=== PATIENT | female | born 1945 | race Caucasian/White ===

== ENCOUNTER → 2017-08-26 | Outpatient (CLI) | payer MEDICARE, BC ==
[~2017-08-26] MED LIST: CELEXA20 MG PO; COLACE100 MG PO; ETODOLAC 200 MG PO; ETODOLAC 400 M400 MG PO; FISH OIL 1,0001 EAC6 PO; HYDROXYCHLOROQ200 M1 PO; LEVOTHYROXINE50 MCG PO; MELADOX3 MG PO; NORCO 5-325 TA1 EACH PO; NORVASC 5 MG TAB5 MG PO; OMEPRAZOLE20 M2 PO; PRILOSEC40 MG PO; ULTRAM 50MG TAB50 MG PO; UNICOMPLEX M TA1 TA1 PO; occuvite
== END ==
LOC: M.RAD 13:20
DX: M81.0 Age-related osteoporosis without current pathological fracture (principal); Z78.0 Asymptomatic menopausal state

== ENCOUNTER → 2018-09-23 | Outpatient (CLI) | payer MEDICARE, BC | LOC: M.RAD 11:39 | DX: S92.901A Unspecified fracture of right foot, initial encounter for closed fracture (principal); M19.071 Primary osteoarthritis, right ankle and foot; X58.XXXA Exposure to other specified factors, initial encounter; Y93.89 Activity, other specified; Y92.89 Other specified places as the place of occurrence of the external cause; Y99.8 Other external cause status ==

== ENCOUNTER 2018-12-29 13:54 | Inpatient (IN) | payer MEDICARE, BC ==
[~2018-12-29] VITALS: Ht 152.4 cm; Wt 84.1 kg
[~2018-12-29 13:54] MED LIST changes: -NORVASC 5 MG TAB5 MG PO; +NORVASC5 M1 PO
[2018-12-29 13:58] VITALS: BP 136/97
[2018-12-29] MEDS ORDERED: MAGNESIUM250 M1 PO (14:04)
[2018-12-29] MEDS ORDERED: RAYOS5 MG PO (14:04)
[2018-12-29 14:37] LABS: ABSOLUTE LYMPHOCYTES 1.2 thou/uL (0.8-5.3); ABSOLUTE MONOCYTES 0.7 thou/uL (0.0-1.2); ABSOLUTE NEUTROPHILS 3.4 thou/uL (1.6-8.1); BASOPHILS 0.8 %; EOSINOPHILS 0.6 %; HEMATOCRIT 38.9 % (37.0-47.0); HEMOGLOBIN 13.5 gm/dL (12.0-15.0); LYMPHOCYTES 22.2 %; MCH 33.3 pg (26.0-34.0); MCHC 34.6 g/dL (28.0-37.0); MCV 96.2 fL (80.0-100.0); MONOCYTES 13.8 %; MPV 8.2 fl. (7.2-11.1); NUCLEATED RBCS 0 /100WBC; PLATELET COUNT* 204 thou/uL (150-400); POLYS 62.6 %; RBC 4.04 mil/uL (4.20-5.00); RDW-CV 14.7 % (10.5-14.5); WBC 5.3 thou/uL (4.0-11.0)
[2018-12-29 14:47] LABS: ANION GAP 9 mmol/L (7-16); APTT 31.3 Seconds (25.0-31.3); BUN 11 mg/dL (7-18); CALCIUM 8.9 mg/dL (8.5-10.1); CHLORIDE 101 mmol/L (98-107); CO2 26 mmol/L (21-32); CREATININE 0.8 mg/dL (0.6-1.3); GLUCOSE 123 mg/dL (70-99); POTASSIUM 3.4 mmol/L (3.5-5.1); PROTIME 10.5 Seconds (9.20-11.50); SODIUM 136 mmol/L (136-145)
[2018-12-29 14:59] LABS: ALBUMIN 2.8 g/dL (3.4-5.0); ALKALINE PHOSPHATASE 41 U/L (46-116); CK-MB MASS < 0.5 ng/mL (<0.5-3.6); LIPASE 103 U/L (73-393); MAGNESIUM 2.1 mg/dL (1.8-2.4); NT-PRO BRAIN NAT PEPTIDE 270 pg/mL (<300); SGOT 20 U/L (15-37); SGPT 27 U/L (30-65); TOTAL BILIRUBIN 0.6 mg/dL (<0.1-1.0); TOTAL PROTEIN 7.1 g/dL (6.4-8.2)
[2018-12-29 16:31] VITALS: BP 117/75
--- NOTE | 2018-12-29 17:04 | EKG ---
[place] [address] ELECTROCARDIOGRAM REPORT Name: JENIJELANI JI Room: [address] ADM IN M.R.#: [id number] Admission: 12/29/18 Attend Phys: Tracy Monroe Discharge: Date of : 41 Report #: [id number] THIS REPORT FOR: //name// [facility] ED Test Date: 2018-12-29 Test Time: 14:01:01 Pat Name: JELANI NGO Department: Room: [facility] Gender: F Lithoduplicator Operator: JACKSON : 1945 Requested By: Willard Rodrigez Order Number: [id number] MD: Mikel Adams Measurements Intervals [place] Rate: 69 P: 14 W[place]: 212 QRS: 20 QRSD: 77 T: 15 QT: 417 QTc: 447 Interpretive Statements Sinus rhythm Borderline prolonged [place] interval Low voltage, precordial leads Nonspecific T abnormalities, anterior leads Compared to ECG 10/14/2015 11:19:02 Low QRS voltage now present T-wave abnormality still present Electronically Signed On 12-29-2018 17:04:13 CDT by Mikel Adams [email or web address] <ELECTRONICALLY SIGNED> By: Mikel Adams MD, FAC 12/29/18 1704 140 00 Mikel Adams MD, [facility] /EPI
[2018-12-29 17:05] VITALS: BP 161/74
[2018-12-29 17:09] VITALS: BP 165/78
[2018-12-29] MEDS ORDERED: ENBREL25 MG/0.5 SUBQ (21:01)
[2018-12-29] MEDS ORDERED: METHOTREXATE 22.5 M1 SUBQ (21:02)
[2018-12-29] MEDS ORDERED: TYLENOL325 M1 PO (21:04)
[2018-12-30] VITALS: BP 152/68
[2018-12-30 04:00] VITALS: BP 135/67
[2018-12-30 08:00] VITALS: BP 143/77
[2018-12-30 11:36] VITALS: BP 170/69
--- NOTE | 2018-12-30 12:16 | 2DMMODE ---
[place] [address] 2 D/M-MODE ECHOCARDIOGRAM Name: NGOJELANI Room: [address] ADM IN [facility]#: [id number] Admission: 12/29/18 Attend Phys: Caden Todd Discharge: Date of : 41 Date of Service: 12/30/18 1216 Report #: [id number] THIS REPORT FOR: //name// APPROVED REPORT Study performed: 12/30/2018 09:25:02 EXAM: Comprehensive 2D, Doppler, and color-flow Echocardiogram Patient Location: In-Patient Room #: [facility] Status: routine BSA: 1.81 HR: 88 bpm BP: 143/77 mmHg Rhythm: NSR Other Information Study Quality: Good Indications Pulmonary Embolism 2D Dimensions IVSd: 13.16 (7-11mm) LVOT Diam: 19.74 (18-24mm) LVDd: 41.26 mm PWd: 12.18 (7-11mm) Ascending Ao: 34.17 (22-36mm) LVDs: 24.21 (25-40mm) Aortic Root: 34.57 mm Volumes Left Atrial Volume (Systole) LA ESV Index: 26.50 mL/m2 Aortic Valve AoV Peak Av.: 1.93 m/s AO Peak Gr.: 14.87 mmHg LVOT Max P.78 mmHg AO Mean Gr.: 8.42 mmHg LVOT Mean P.89 mmHg LVOT Max V: 1.48 m/s AO V2 VTI: 40.89 cm LVOT Mean V: 1.03 m/s KELLEY (VTI): 2.57 cm2 LVOT V1 VTI: 34.29 cm Mitral Valve E/A Ratio: 1.06 MV Decel. Time: 205.12 ms MV E Max Av.: 1.22 m/[place] [address] 2 D/M-MODE ECHOCARDIOGRAM Name: JELANI NGO Room: [address] IN .R.#: [id number] Admission: 12/29/18 Attend Phys: Caden Todd Discharge: Date of : 41 Date of Service: 12/30/18 1216 Report #: [id number] MV PHT: 59.49 ms MVA (PHT): 3.70 cm2 TDI E/Lateral E': 8.71 E/Medial E': 13.56 Medial E' Av.: 0.09 m/s Lateral E' Av.: 0.14 m/s Pulmonary Valve PV Peak Av.: 0.97 m/s PV Peak Gr.: 3.78 mmHg Tricuspid Valve RAP Estimate: 5.00 mmHg TR Peak Gr.: 35.72 mmHg RVSP: 40.00 mmHg PA Pressure: 40.00 mmHg Left Ventricle The left ventricle is normal size. There is normal LV segmental wall motion. Mild concentric left ventricular hypertrophy. Left ventricular systolic function is normal. LVEF is >70%. Transmitral Doppler flow pattern suggests impaired LV relaxation. Right Ventricle The right ventricle is normal size. The right ventricular systolic function is normal. Atria The left atrium size is normal. The right atrium size is normal. Aortic Valve Mild aortic valve sclerosis. Trace aortic regurgitation. There is no aortic valvular stenosis. Mitral Valve The mitral valve is normal in structure. Mild mitral regurgitation. No evidence of mitral valve stenosis. Tricuspid Valve The tricuspid valve is normal in structure. Mild tricuspid regurgitation. Moderate pulmonary hypertension. The RVSP is 40-45 mmHg. Pulmonic Valve The pulmonary valve is normal in structure. Trace [place] [address] 2 D/M-MODE ECHOCARDIOGRAM Name: JELANI NGO Room: [address] IN [facility]#: [id number] Admission: 12/29/18 Attend Phys: Caden Todd Discharge: Date of : 41 Date of Service: 12/30/18 1216 Report #: [id number] Great Vessels The aortic root is normal in size. IVC is normal in size and collapses >50% with inspiration. Pericardium Trace pericardial effusion. Left pleural effusion. <Conclusion> The left ventricle is normal size. Mild concentric left ventricular hypertrophy. Left ventricular systolic function is normal. LVEF is >70%. Transmitral Doppler flow pattern suggests impaired LV relaxation. Mild aortic valve sclerosis. There is no aortic valvular stenosis. Trace aortic regurgitation. Mild mitral regurgitation. Mild tricuspid regurgitation. Moderate pulmonary hypertension. The RVSP is 40-45 mmHg. Left pleural effusion. IVC is normal in size and collapses >50% with inspiration. <ELECTRONICALLY SIGNED> By: Tay Mendiola MD, FACC 12/30/181215 15 15 Tay Mendiola MD, FACC /INF
[2018-12-30 16:22] VITALS: BP 143/78
[2018-12-30 17:25] LABS: BF RBC <1000 /mm3
[2018-12-30 17:30] LABS: TOTAL CELL COUNT 1434 /mm3
[2018-12-30 17:36] LABS: CLARITY SLIGHTLY HAZY; TOTAL VOLUME 550 ml
[2018-12-30 17:40] LABS: BF LYMPHOCYTES 75 %; BF POLYS 25 %; BF TISSUE 3 /100 WBC
[2018-12-30 17:41] LABS: SOURCE PLEURAL FLUID
[2018-12-30 20:30] VITALS: BP 105/71
[2018-12-31] VITALS (7 sets, daily range): BP systolic 137–171; BP diastolic 64–82
[2018-12-31 05:24] LABS: HEMATOCRIT 35.4 % (37.0-47.0); HEMOGLOBIN 11.8 gm/dL (12.0-15.0); MCH 32.1 pg (26.0-34.0); MCHC 33.4 g/dL (28.0-37.0); MCV 96.1 fL (80.0-100.0); MPV 8.4 fl. (7.2-11.1); RBC 3.68 mil/uL (4.20-5.00); RDW-CV 14.5 % (10.5-14.5); WBC 5.9 thou/uL (4.0-11.0)
[2018-12-31 05:46] LABS: CALCIUM 8.3 mg/dL (8.5-10.1); CREATININE 0.6 mg/dL (0.6-1.3); POTASSIUM 3.1 mmol/L (3.5-5.1)
--- NOTE | 2018-12-31 09:19 | CON ---
[address] [address] CONSULTATION Name: NGOJELANILUZ OLVERAA Room: [address] IN M.R.#: [id number] Admission: 12/29/18 Attend Phys: Tracy Monroe Discharge: Date of : 41 Report #: [id number] THIS REPORT FOR: //name// CC: Estevan Fountain MD Nadirryan Nice Nadirryan Todd DATE OF SERVICE: 12/30/2018 REQUESTING PHYSICIAN: Dr. Todd. REASON FOR CONSULTATION: Pulmonary embolism, infiltrates. DISCUSSION: The patient is a pleasant 73-year-old woman who was admitted after presenting to the Emergency Department yesterday. She has not felt very well for quite some time, getting progressively weaker, no energy, a lot of fatigue. Over the last week or so, however, she has developed more of a cough. May have had a fever at home, but was not checked. Was also developed some pain. She points to her epigastric area, also up into her left shoulder. Was getting more short of breath. Was evaluated in the Emergency Department. Chest x-ray suggested an infiltrate, possible effusion. She had a CT angiogram done of her chest, which was positive for pulmonary emboli seen primarily in the left lower lobe, smaller one on the right. Infiltrates were noted. Did have a left-sided pleural effusion. With the findings on the CAT scan, IV heparin was started. This has been continued overnight. She is a lifelong nonsmoker. She has no prior history of known thromboembolic disease. She has had episodes of bronchitis and pneumonia in the past. No history of TB or exposure to it. She has been tested for it in the past, all of which have been negative. She is generally fairly sedentary. She has rheumatoid arthritis and Sjogren syndrome. She notes she typically does not get out much. However, she still lives in her own home. Typically does not have to navigate steps, unless she is doing laundry. She denied any syncopal episodes or falls. She is on chronic immunosuppressive therapy. PAST MEDICAL HISTORY: Remarkable for the rheumatoid arthritis, Sjogren's as noted. Also has fibromyalgia. She is chronically on methotrexate, Enbrel and low-dose prednisone. Ischemic colitis several years ago. 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 House. She also has a history of hypothyroidism and hypertension. She has had a Pneumovax in the past. HOME MEDICATIONS: Fish oil; amlodipine; p.r.n. acetaminophen; Celexa; magnesium; omeprazole; prednisone 2.5 mg a day; levothyroxine; multivitamins; Enbrel 25 mg subcu weekly; methotrexate 2.5 mg tablets, I believe she has [address] [place] [address] CONSULTATION Name: JELANI NGO Room: [address] IN ..#: [id number] Admission: 12/29/18 Attend Phys: Tracy Monroe Discharge: Date of : 41 Report #: [id number]. SOCIAL HISTORY: She is a lifelong nonsmoker. 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 She does have two cats, two dogs at home. FAMILY HISTORY: Positive for lupus. She is not aware of any family members with lung problems nor history of blood clots. REVIEW OF SYSTEMS: ROS was done. Note positives above. Overall, has a lot of fatigue. She does deny difficulty swallowing. Generally no coughing or choking with p.o. intake. Not had any hematemesis. No nausea or vomiting. Did have some sweats at home on one occasion, but she has not checked her temperature. Does feel somewhat congested today, but has been unable to bring up any sputum. Does have chronic fatigue, generalized achiness. More recently, she has had the pain, she points to epigastric area, left upper quadrant as well as her left shoulder area. Not aware that she has had any lower extremity edema. Does tend towards having loose stools and intermittent problem for her. No blood in her stools. PHYSICAL EXAMINATION: GENERAL APPEARANCE: A woman who looks stated age. Alert, cooperative. She is generally in no acute distress. Did have a frequent dry nonproductive cough while I was in the room. HEENT: Head is normocephalic. Sclerae nonicteric. Mucous membranes are moist. NECK: Negative for adenopathy. No JVD is appreciated. No supraclavicular adenopathy. HEART: Regular rate. No S3. P2 is not accentuated. LUNGS: Reveal breath sounds to be mildly diminished in the bases, especially on the left. Dullness to percussion. No crackles. She has no CVA tenderness noted. No wheezing. ABDOMEN: Mildly obese, but soft, without appreciable hepatosplenomegaly. There is no guarding or rebound tenderness. EXTREMITIES: No definite edema noted in the lower extremities. No calf tenderness. Homans' is negative. SKIN: Warm and dry. Turgor is fair. Radial pulses are present. LABORATORY AND X-RAY FINDINGS: Chest x-ray reveals infiltrate seen in left lower lung field with associated pleural effusion. Does look worse on this morning's film. CTA was done yesterday afternoon. Moderate size left pleural effusion. Had some patchy infiltrates seen bilaterally, more infiltrate and atelectatic changes seen in the left lower lung field. White blood cell count 5300, hemoglobin 13.5, hematocrit of 38.9, platelets 204,000. D-dimer yesterday was 2.01. C-reactive protein is 57.1. Prealbumin 12.1. BUN is 11, creatinine of 0.8, serum bicarb is 26. Blood cultures are pending. IMPRESSION: [facility] [address] [place] [address] CONSULTATION Name: JELANI NGO Room: [address] ADM IN .R.#: [id number] Admission: 12/29/18 Attend Phys: Tracy Monroe Discharge: Date of : 41 Report #: [id number] 1. Pulmonary embolism. It is difficult to know how long she may have had this. She is relatively sedentary, really has not been symptomatic as far as her breathing is concerned for the last week. With her sedentary lifestyle, we will have some increased risk. 2. Pleural effusion. This may be a parapneumonic effusion. It is also possible some infiltrate noted in left lower lobe could be from a pulmonary infarct. 3. History of rheumatoid arthritis and Sjogren's. She is on chronic immunosuppressive therapy. 4. Elevated CRP. RECOMMENDATIONS: 1. Agree with heparin. 2. Given the size of the effusion, will ask IR to tap. Can do either today or tomorrow. We will need to have her heparin transiently halted for that. 3. Check venous Dopplers. 4. Agree with echo, which has been requested. 5. Once the thoracentesis is done, she should be able to transition over to an oral anticoagulant. We will need to discuss with her, which might be appropriate for her usage. 6. Follow up CBC and other lab as well. <ELECTRONICALLY SIGNED> By: Peri Guadalupe MD 12/31/18 0919 1037 [id number] Guadalupe MD /nt
[2018-12-31 14:09] LABS: BODY FLUID LDH 111 IU/L (()); BODY FLUID PROTEIN 3.6 g/dL (())
[2019-01-01] VITALS (7 sets, daily range): BP systolic 126–168; BP diastolic 64–80
[2019-01-01 05:03] LABS: HEMATOCRIT 35.2 % (37.0-47.0); HEMOGLOBIN 11.9 gm/dL (12.0-15.0); MCH 32.4 pg (26.0-34.0); MCHC 33.9 g/dL (28.0-37.0); MCV 95.6 fL (80.0-100.0); MPV 8.3 fl. (7.2-11.1); RBC 3.68 mil/uL (4.20-5.00); RDW-CV 14.6 % (10.5-14.5); WBC 6.3 thou/uL (4.0-11.0)
[2019-01-01 05:10] LABS: CALCIUM 8.6 mg/dL (8.5-10.1); CREATININE 0.7 mg/dL (0.6-1.3); MAGNESIUM 1.9 mg/dL (1.8-2.4)
--- NOTE | 2019-01-01 10:03 | EKG ---
[place] [address] ELECTROCARDIOGRAM REPORT Name: JENIJELANI GARRISON Room: [address] ADM IN M.R.#: [id number] Admission: 12/29/18 Attend Phys: Tracy Monroe Discharge: Date of : 41 Report #: [id number] THIS REPORT FOR: //name// [facility] Test Date: 2018-12-31 Test Time: 16:50:27 Pat Name: JELANI NGO Department: Room: [address] Gender: F Radiology Specialist: CARLIN : 1945 Requested By: Mitzy Churchill Order Number: [id number] Reading MD: Mikel Adams Measurements Intervals [place] Rate: 124 P: MS: QRS: 68 QRSD: 70 T: -1 QT: 303 QTc: 436 Interpretive Statements Atrial fibrillation Low voltage, precordial leads Borderline repolarization abnormality Compared to ECG 12/29/2018 14:01:01 Sinus rhythm no longer present T-wave abnormality no longer present Electronically Signed On 01-01-2019 10:03:04 CDT by Mikel Adams [email or web address] <ELECTRONICALLY SIGNED> By: Mikel Adams MD, FACC 01/01/19 1003 1650 1650 Mikel Adams MD, FACC /EPI
[2019-01-01 10:08] LABS: SOURCE PLEURAL
--- NOTE | 2019-01-01 13:07 | PATH ---
[address] [address] PATHOLOGY RPT PROCEDURE Name: JELANI NGO Room: [address] IN [facility]#: [id number] Admission: 12/29/18 Date of : 41 Discharge: Report #: [id number] Path Case #: [id number] Note [facility] Accession Number: [id number] TESTS RESULT FLAG UNITS REF RANGE LAB Clinician Provided Cytology Information No. of containers..01 Other (Miscellaneous) Source: PLEURAL FLUID DIAGNOSIS: 02 LEFT PLEURAL FLUID NEGATIVE FOR MALIGNANT CELLS. REACTIVE MESOTHELIAL CELLS AND INFLAMMATORY CELLS. THIS INTERPRETATION INCLUDES EVALUATION OF A CELL BLOCK. Signed out by: 02 Donaldo Waterman MD, Pathologist NPI- [id number] Performed by: 01 Flor Jeter, Slicing Machine Feeder ([facility]) Gross description: 01 40ML, YELLOWISH RED, CLOUDY /LCS 03/17/1840 0000 Local FLAG LEGEND: L-Low Normal,H-High Normal,LL-Alert Low,HH-Alert High <-Panic Low,>-Panic High,A-Abnormal,AA-Critical Abnormal Performed at: [address] [place] [address] Gabriele Whitmore MD, [address] [place] [phone] Donaldo Waterman MD, Specimen Comment: A courtesy copy of this report has been sent to Specimen Comment: [phone], . Specimen Comment: Report sent to / DR BELLO Performed at: [address], [place], [place] [id number] MD Gabriele Whitmore MD Phone: [phone]
[2019-01-01 14:05] LABS: CHOLESTEROL 128 mg/dL (<200); HDL CHOLESTEROL 37 mg/dL (>40); LDL CHOLESTEROL 79 mg/dL (<100); SERUM ASSESSMENT Clear; TC:HDL 3.5 Ratio (Not establshd); TRIGLYCERIDE 62 mg/dL (<150); VLDL 12 mg/dL (<40)
[2019-01-02] VITALS: BP 165/90
[2019-01-02 04:00] VITALS: BP 162/83
[2019-01-02 11:47] VITALS: BP 147/74
--- NOTE | 2019-01-02 12:42 | EKG ---
[place] [address] ELECTROCARDIOGRAM REPORT Name: JENIJELANI GARRISON Room: [address] ADM IN M.R.#: [id number] Admission: 12/29/18 Attend Phys: Tracy Monroe Discharge: Date of : 41 Report #: [id number] THIS REPORT FOR: //name// [facility] Test Date: 2019-01-02 Test Time: 10:27:02 Pat Name: JELANI NGO Department: Room: [address] Gender: F Sharemilker: RT : 1945 Requested By: Skye Martinez Order Number: [id number] Reading MD: Rolf Bond Measurements Intervals [place] Rate: 56 P: 14 [place]: 215 QRS: -6 QRSD: 77 T: 17 QT: 450 QTc: 435 Interpretive Statements Sinus rhythm Borderline prolonged [place] interval Low voltage, precordial leads Borderline T abnormalities, anterior leads Compared to ECG 12/31/2018 16:50:27 T-wave abnormality now present Atrial fibrillation no longer present Electronically Signed On 01-02-2019 12:42:31 CDT by Rolf Bond [email or web address] <ELECTRONICALLY SIGNED> By: Angelo Bond MD, [facility] 01/02/19 1242 1027 1027 Angelo Bond MD, [facility] /EPI
[2019-01-02 16:20] VITALS: BP 146/83
[2019-01-03] VITALS: BP 140/79
[2019-01-03 09:17] VITALS: BP 150/80
[2019-01-03 11:21] VITALS: BP 145/85
[2019-01-03] MEDS ORDERED: LEVAQUIN 500 M500 M3 PO (11:46)
[2019-01-03] MEDS ORDERED: XARELTO1 EACH PO (11:46)
[2019-01-03] MEDS ORDERED: PACERONE 200 M200 M1 PO (11:46)
== END 2019-01-03 16:40 | disposition home or self-care (01) | DRG 177 ==
LOC: M.ERS 13:54 → M.TBA-ER 15:18 → M.2W 15:18
PROVIDERS: Family Medicine; Internal Medicine; Internal Medicine Pulmonary Disease; Registered Nurse; ADMIT Internal Medicine
PROC: 0W9B3ZZ Drainage of Left Pleural Cavity, Percutaneous Approach (ICD-10-PCS; principal; 2018-12-31)
DX: J15.6 Pneumonia due to other Gram-negative bacteria (principal); J96.01 Acute respiratory failure with hypoxia; I26.99 Other pulmonary embolism without acute cor pulmonale; E27.40 Unspecified adrenocortical insufficiency; K52.1 Toxic gastroenteritis and colitis; J91.8 Pleural effusion in other conditions classified elsewhere; I10 Essential (primary) hypertension; M19.90 Unspecified osteoarthritis, unspecified site; M79.7 Fibromyalgia; M35.00 Sjogren syndrome, unspecified; E03.9 Hypothyroidism, unspecified; Z96.653 Presence of artificial knee joint, bilateral; I27.20 Pulmonary hypertension, unspecified; E66.9 Obesity, unspecified; I48.0 Paroxysmal atrial fibrillation; R00.0 Tachycardia, unspecified; M06.9 Rheumatoid arthritis, unspecified; T50.905A Adverse effect of unspecified drugs, medicaments and biological substances, initial encounter; Z90.710 Acquired absence of both cervix and uterus; Z90.49 Acquired absence of other specified parts of digestive tract; Z79.899 Other long term (current) drug therapy; Z88.2 Allergy status to sulfonamides; Z84.89 Family history of other specified conditions; Z68.36 Body mass index [BMI] 36.0-36.9, adult; Z98.49 Cataract extraction status, unspecified eye; Y92.89 Other specified places as the place of occurrence of the external cause

== ENCOUNTER → 2021-05-11 | Outpatient (CLI) | payer MEDICARE, BC ==
[~2021-05-11] MED LIST changes: +ENBREL25 MG/0.5 SUBQ; +LEVAQUIN 500 M500 M3 PO; +MAGNESIUM250 M1 PO; +METHOTREXATE 22.5 M1 SUBQ; +PACERONE 200 M200 M1 PO; +RAYOS5 MG PO; +TYLENOL325 M1 PO; +XARELTO1 EACH PO
== END ==
LOC: M.ULTRA 05-09 10:30
PROVIDERS: ATTEND Internal Medicine
DX: I70.1 Atherosclerosis of renal artery (principal)